=== PATIENT | male | born 1945 | race Caucasian/White ===

== ENCOUNTER 2017-07-06 08:58 | Outpatient (CLI) | payer OTHER ==
[~2017-07-06 08:58] MED LIST: ALTOPREV40 MG; CEPHULAC10 G/15 ML PO; COZAAR100 MG; POLY119PG PO; ZANTAC300 MG; ZOCOR20 MG
== END 2017-07-06 13:58 | disposition home or self-care (01) ==
LOC: TOM 08:58
DX: C18.9 Malignant neoplasm of colon, unspecified (principal)
CPT/HCPCS: 74178; Q9965

== ENCOUNTER → 2017-10-20 | Outpatient (CLI) | payer OTHER | END | disposition home or self-care (01) | LOC: NUCLEAR 08:00 | DX: C18.9 Malignant neoplasm of colon, unspecified (principal) | CPT/HCPCS: 78816; A9552 ==

== ENCOUNTER 2017-11-15 17:45 | Emergency (ER) | payer OTHER ==
[~2017-11-15] VITALS: Ht 167.6 cm; Wt 77.1 kg
== END 2017-11-15 21:03 | disposition home or self-care (01) ==
LOC: ER 17:45
DX: G89.3 Neoplasm related pain (acute) (chronic) (principal); C18.9 Malignant neoplasm of colon, unspecified; K62.89 Other specified diseases of anus and rectum

== ENCOUNTER 2017-12-17 21:08 | Emergency (ER) | payer OTHER ==
[~2017-12-17] VITALS: Ht 167.6 cm; Wt 77.1 kg
[2017-12-17] MEDS ORDERED: CILOSTAZOL50 MG (22:25)
[2017-12-18] MEDS ORDERED: CIPRO500 MG PO (02:15)
[2017-12-18] MEDS ORDERED: URIN D.S. TABL1 EACH PO ×2 (02:16)
[2017-12-25] MEDS ORDERED: VASOFLEX D1 CA1 EACH PO (13:29)
[2017-12-25] MEDS ORDERED: PERCOCET 10-321 EACH PO (13:29)
[2017-12-25] MEDS ORDERED: [UNRECOGNIZED DRUG - OTHER] (13:30)
== END 2017-12-18 02:40 ==
LOC: ER 21:08
DX: R30.0 Dysuria (principal); N39.0 Urinary tract infection, site not specified

== ENCOUNTER 2018-01-01 09:07 | Inpatient (IN) | payer OTHER ==
[~2018-01-01] VITALS: Ht 167.6 cm; Wt 77.1 kg
[~2018-01-01 09:07] MED LIST changes: +CILOSTAZOL50 MG; +CIPRO500 MG PO; +PERCOCET 10-321 EACH PO; +URIN D.S. TABL1 EACH PO; +VASOFLEX D1 CA1 EACH PO; +[UNRECOGNIZED DRUG - OTHER]
[2018-01-08] MEDS ORDERED: OXYC1TAB9 PO (11:39)
== END 2018-01-08 12:29 | disposition home health service (06) | DRG 330 ==
LOC: ER 09:07 → SEC-K 10:52 → MEDI 10:52 → O/R 01-02 22:47 → MEDI 01-03 01:54
PROC: 30233N1 Transfusion of Nonautologous Red Blood Cells into Peripheral Vein, Percutaneous Approach (ICD-10-PCS; 2018-01-01)
PROC: 0D1L0Z4 Bypass Transverse Colon to Cutaneous, Open Approach (ICD-10-PCS; principal; 2018-01-03)
PROC: 0DTP0ZZ Resection of Rectum, Open Approach (ICD-10-PCS; 2018-01-03)
PROC: 07TC0ZZ Resection of Pelvis Lymphatic, Open Approach (ICD-10-PCS; 2018-01-03)
PROC: 05H333Z Insertion of Infusion Device into Right Innominate Vein, Percutaneous Approach (ICD-10-PCS; 2018-01-05)
DX: C20 Malignant neoplasm of rectum (principal); K92.2 Gastrointestinal hemorrhage, unspecified; D50.0 Iron deficiency anemia secondary to blood loss (chronic); I10 Essential (primary) hypertension; K62.4 Stenosis of anus and rectum; K62.89 Other specified diseases of anus and rectum; K52.89 Other specified noninfective gastroenteritis and colitis

== ENCOUNTER 2018-05-10 08:21 | Outpatient (CLI) | payer OTHER ==
[~2018-05-10 08:21] MED LIST changes: +OXYC1TAB9 PO
== END 2018-05-10 08:27 | disposition home or self-care (01) ==
LOC: NUCLEAR 08:21
DX: C18.8 Malignant neoplasm of overlapping sites of colon (principal)
CPT/HCPCS: 78816; A9552

== ENCOUNTER 2018-12-25 08:13 | Outpatient (CLI) | payer OTHER | END 2018-12-25 08:27 | disposition home or self-care (01) | LOC: NUCLEAR 08:13 | DX: C18.8 Malignant neoplasm of overlapping sites of colon (principal); Z08 Encounter for follow-up examination after completed treatment for malignant neoplasm | CPT/HCPCS: 78816; A9552 ==

== ENCOUNTER 2019-02-15 07:33 | Day surgery (SDC) | payer OTHER | END 2019-02-15 13:40 | disposition home or self-care (01) | LOC: AMB-ENDOS 07:33 | DX: K64.1 Second degree hemorrhoids (principal) ==

== ENCOUNTER 2019-03-27 12:52 | Outpatient (CLI) | payer OTHER | END 2019-03-27 13:00 | disposition home or self-care (01) | LOC: TOM 12:52 | DX: K43.2 Incisional hernia without obstruction or gangrene (principal) ==

== ENCOUNTER 2019-05-06 10:37 | Outpatient (CLI) | payer OTHER | END 2019-05-06 10:52 | disposition home or self-care (01) | LOC: EKG 10:37 → RAD 10:37 → LAB 10:37 → EKG 10:52 | DX: Z01.811 Encounter for preprocedural respiratory examination (principal); K43.2 Incisional hernia without obstruction or gangrene; I49.8 Other specified cardiac arrhythmias ==

== ENCOUNTER 2019-06-04 01:18 | Emergency (ER) | payer OTHER ==
[~2019-06-04] VITALS: Ht 167.6 cm; Wt 81.6 kg
[2019-06-04] MEDS ORDERED: PYRIDIUM100 MG PO (03:32)
== END 2019-06-04 03:48 | disposition home or self-care (01) ==
LOC: ER 01:18
DX: N40.1 Benign prostatic hyperplasia with lower urinary tract symptoms (principal); N39.0 Urinary tract infection, site not specified

== ENCOUNTER 2019-06-05 08:57 | Outpatient (CLI) | payer OTHER ==
[~2019-06-05 08:57] MED LIST changes: +PYRIDIUM100 MG PO
== END 2019-06-05 10:00 | disposition home or self-care (01) ==
LOC: NUCLEAR 08:57
DX: C18.8 Malignant neoplasm of overlapping sites of colon (principal); Z12.12 Encounter for screening for malignant neoplasm of rectum
CPT/HCPCS: 78816; A9552

== ENCOUNTER → 2019-08-02 | Outpatient (CLI) | payer OTHER | END | disposition home or self-care (01) | LOC: TOM 10:15 | DX: R10.84 Generalized abdominal pain (principal) ==

== ENCOUNTER 2020-03-03 07:59 | Outpatient (CLI) | payer OTHER | END 2020-03-03 10:00 | disposition home or self-care (01) | LOC: NUCLEAR 07:59 | PROVIDERS: ATTEND Internal Medicine | DX: C18.8 Malignant neoplasm of overlapping sites of colon (principal) | CPT/HCPCS: 78816; A9552 ==

== ENCOUNTER 2020-07-15 07:53 | Outpatient (CLI) | payer OTHER | END 2020-07-15 08:02 | disposition home or self-care (01) | LOC: NUCLEAR 07:53 | PROVIDERS: ATTEND Internal Medicine | DX: C18.8 Malignant neoplasm of overlapping sites of colon (principal); D50.8 Other iron deficiency anemias | CPT/HCPCS: 78816; A9552 ==

== ENCOUNTER 2021-01-07 07:56 | Outpatient (CLI) | payer OTHER | END 2021-01-07 07:59 | disposition home or self-care (01) | LOC: NUCLEAR 07:56 | PROVIDERS: ATTEND Internal Medicine | DX: C18.8 Malignant neoplasm of overlapping sites of colon (principal) | CPT/HCPCS: 78816; A9552 ==

== ENCOUNTER 2021-02-26 01:45 | Emergency (ER) | payer OTHER ==
[~2021-02-26] VITALS: Ht 165.1 cm; Wt 72.6 kg
[2021-02-26] MEDS ORDERED: CASODEX50 MG (01:55)
[2021-02-26] MEDS ORDERED: DIOVAN160 M1 (01:55)
[2021-02-26] MEDS ORDERED: PENTOXIFYLLINE400 MG (01:56)
[2021-02-27] MEDS ORDERED: PHENERGAN25 MG PO (04:45)
[2021-02-27] MEDS ORDERED: LEVSIN0.125 MG PO (04:45)
[2021-02-27] MEDS ORDERED: PEPCID AC20 MG PO (04:45)
== END 2021-02-26 10:31 | disposition home or self-care (01) ==
LOC: ER 01:45
DX: R10.84 Generalized abdominal pain (principal); R11.2 Nausea with vomiting, unspecified

== ENCOUNTER 2021-02-27 00:05 | Emergency (ER) | payer OTHER ==
[~2021-02-27] VITALS: Ht 165.1 cm; Wt 72.6 kg
[~2021-02-27 00:05] MED LIST changes: +CASODEX50 MG; +DIOVAN160 M1; +PENTOXIFYLLINE400 MG
[2021-02-27] MEDS ORDERED: PEPCID AC20 MG PO (04:45)
[2021-02-27] MEDS ORDERED: PHENERGAN25 MG PO (04:45)
[2021-02-27] MEDS ORDERED: LEVSIN0.125 MG PO (04:45)
== END 2021-02-27 05:06 | disposition home or self-care (01) ==
LOC: ER 00:05
DX: R10.13 Epigastric pain (principal); R11.2 Nausea with vomiting, unspecified